=== PATIENT | male | born 1985 | race Hispanic/Latino ===

== ENCOUNTER 2018-01-04 16:04 | Emergency (ER) | payer MEDICAID, SELFPAY, OTHER | END 2018-01-04 17:58 | disposition home or self-care (01) | LOC: M ED 16:04 | DX: S82.831A Other fracture of upper and lower end of right fibula, initial encounter for closed fracture (principal); W19.XXXA Unspecified fall, initial encounter; Y92.410 Unspecified street and highway as the place of occurrence of the external cause; Y93.51 Activity, roller skating (inline) and skateboarding; Y99.9 Unspecified external cause status; Z79.899 Other long term (current) drug therapy | CPT/HCPCS: 73610 ==

== ENCOUNTER → 2022-04-13 | Outpatient (CLI) | payer MEDICAID ==
[~2022-04-13] MED LIST: ADDE10CA3 PO; FLUV150C PO; HYDR-3715 PO; IBUP-1022 PO; WELLTAB40 PO
== END ==
LOC: M SOG 08:23
PROVIDERS: ATTEND Orthopaedic Surgery Hand Surgery
DX: M79.642 Pain in left hand (principal)

== ENCOUNTER 2022-08-21 12:25 | Emergency (ER) | payer MEDICAID, OTHER ==
[~2022-08-21] VITALS: Ht 177.8 cm; Wt 100.7 kg
[2022-08-21] MEDS ORDERED: FOLI1TAB11 (12:33)
[2022-08-21] MEDS ORDERED: ETAN50PE (12:33)
[2022-08-21 17:13] LABS: GC DNA AMPLIFICATION NEGATIVE (NEGATIVE)
[2022-08-21] MEDS ORDERED: NAPR-837 PO (17:15)
[2022-08-21] MEDS ORDERED: LEVO1TAB39 PO (17:18)
[2022-08-21 17:37] VITALS: BP 145/86
== END 2022-08-21 17:44 | disposition home or self-care (01) ==
LOC: M ED 12:25
DX: N45.1 Epididymitis (principal); Z79.899 Other long term (current) drug therapy

== ENCOUNTER → 2022-08-30 | Outpatient (REF) | payer OTHER ==
[~2022-08-30] MED LIST changes: +ETAN50PE; +FOLI1TAB11; +LEVO1TAB39 PO; +NAPR-837 PO
[2022-08-30 14:49] LABS: APPEARANCE, URINE MANUAL CLEAR (CLEAR); COLOR, URINE MANUAL YELLOW (YELLOW)
[2022-08-30 14:50] LABS: PH,URINE MAN 7.5 UNITS (5.0 - 7.0)
[2022-08-30 14:51] LABS: BILIRUBIN, URINE MANUAL NEGATIVE (NEGATIVE); BLOOD URINE MANUAL NEGATIVE (NEGATIVE); GLUCOSE, URINE (UA) MANUAL NEGATIVE (NEGATIVE); KETONE, URINE MANUAL NEGATIVE (NEGATIVE); LEUKOCYTE ESTERASE, URINE MAN NEGATIVE (NEGATIVE); NITRITE, URINE MANUAL NEGATIVE (NEGATIVE); PROTEIN, URINE MANUAL NEGATIVE (NEGATIVE); UROBILINOGEN, URINE MANUAL NORMAL (NORMAL)
== END ==
LOC: M SMT 12:58
PROVIDERS: ATTEND Physician Assistant
DX: N45.1 Epididymitis (principal)

== ENCOUNTER 2023-03-06 14:16 | Emergency (ER) | payer OTHER ==
[~2023-03-06] VITALS: Ht 177.8 cm; Wt 97.6 kg
[2023-03-06] MEDS ORDERED: ATOM40CA9 (14:45)
[2023-03-06] MEDS ORDERED: CLOM75CA3 (14:45)
[2023-03-06] MEDS ORDERED: LAMO200T3 (14:45)
[2023-03-06] MEDS ORDERED: BOOSTRIX VACCINE (TETANUS/DIPHTH/ACEL. PERTUSSIS) 0.5ML SYR IM ONE (15:50)
[2023-03-06] MEDS ORDERED: NEOSPORIN OINT 0.9 GM PKT TOP ONE (15:50)
[2023-03-06 16:06] VITALS: BP 134/90; TEMP 97.2; O2SAT 98
== END 2023-03-06 16:09 | disposition home or self-care (01) ==
LOC: M ED 14:16
DX: S92.355A Nondisplaced fracture of fifth metatarsal bone, left foot, initial encounter for closed fracture (principal); W22.8XXA Striking against or struck by other objects, initial encounter; Y92.89 Other specified places as the place of occurrence of the external cause; Y93.89 Activity, other specified; Y99.8 Other external cause status; L40.52 Psoriatic arthritis mutilans; F32.A Depression, unspecified; Z79.899 Other long term (current) drug therapy

== ENCOUNTER 2023-03-18 07:40 | Day surgery (SDC) | payer OTHER ==
[~2023-03-18] VITALS: Ht 177.8 cm; Wt 97.0 kg
[~2023-03-18 07:40] MED LIST changes: +ATOM40CA9 PO; +CLOM75CA3 PO; +COSE1INJ SC; +LAMO200T3 PO
[2023-03-18] MEDS ORDERED: LR 1,000 ML IV SCH (07:50)
[2023-03-18] MEDS ORDERED: ceFAZolin SOD 2 GM in IV 1 EA IV ONE (09:00)
[2023-03-18] MEDS ORDERED: dexmedeTOMIDine (4MCG/ML)200MCG/50ML BTL (PRECEDEX) As Ordered ONE (09:25)
[2023-03-18] MEDS ORDERED: ONDANSETRON 4MG 2ML VIAL As Ordered ONE (09:25)
[2023-03-18] MEDS ORDERED: propofoL 200 MG/20 ML VIAL As Ordered ONE (09:25)
[2023-03-18] MEDS ORDERED: fentaNYL 100 MCG/2 ML INJECTION As Ordered ONE ×2 (09:27→10:13)
[2023-03-18] MEDS ORDERED: MIDAZOLAM INJ 2MG/2ML VIAL As Ordered ONE (09:27)
[2023-03-18] MEDS ORDERED: LIDOCAINE 2% 100MG/5ML SDV (FOR ANES.) As Ordered ONE (09:27)
[2023-03-18] MEDS ORDERED: BACITRACIN OINTMENT 30GM TUBE As Ordered ONE (10:50)
[2023-03-18] MEDS ORDERED: oxyCODONE 5MG TAB PO PRN (11:00)
[2023-03-18] MEDS ORDERED: ONDANSETRON 4MG 2ML VIAL IV PRN (11:00)
[2023-03-18] MEDS ORDERED: MORPHINE 2 MG/ML 1ML VIAL IV PRN (11:00)
[2023-03-18] MEDS ORDERED: fentaNYL 100 MCG/2 ML INJECTION IV PRN (11:00)
[2023-03-18] MEDS ORDERED: PERC5TAB12 PO (11:09)
[2023-03-18 12:32] VITALS: BP 155/89; TEMP 97.4; O2SAT 98
== END 2023-03-18 12:55 | disposition home or self-care (01) ==
LOC: M SDC 07:40
PROVIDERS: ATTEND Orthopaedic Surgery Hand Surgery
DX: S92.512A Displaced fracture of proximal phalanx of left lesser toe(s), initial encounter for closed fracture (principal); X58.XXXA Exposure to other specified factors, initial encounter; Y92.89 Other specified places as the place of occurrence of the external cause; L40.50 Arthropathic psoriasis, unspecified; F41.9 Anxiety disorder, unspecified; F32.A Depression, unspecified; G47.30 Sleep apnea, unspecified; R06.83 Snoring; Z79.899 Other long term (current) drug therapy
CPT/HCPCS: 28515; 28899; 76000; C1713; J0690; J1100; J2250; J2405; J3010

== ENCOUNTER → 2023-03-28 | Outpatient (CLI) | payer OTHER ==
[~2023-03-28] MED LIST changes: +PERC5TAB12 PO
== END ==
LOC: M SOG 13:14
PROVIDERS: ATTEND Physician Assistant
DX: S92.515A Nondisplaced fracture of proximal phalanx of left lesser toe(s), initial encounter for closed fracture (principal); W18.30XA Fall on same level, unspecified, initial encounter; Y92.009 Unspecified place in unspecified non-institutional (private) residence as the place of occurrence of the external cause

== ENCOUNTER → 2023-04-29 | Outpatient (CLI) | payer OTHER | LOC: M SOG 08:02 | PROVIDERS: ATTEND Physician Assistant | DX: S92.515D Nondisplaced fracture of proximal phalanx of left lesser toe(s), subsequent encounter for fracture with routine healing (principal) ==

== ENCOUNTER 2023-10-08 11:05 | Day surgery (SDC) | payer OTHER ==
[~2023-10-08] VITALS: Ht 177.8 cm; Wt 99.4 kg
[2023-10-08] MEDS: NS 1,000 ML IV ONE (06:00)
[~2023-10-08 11:05] MED LIST changes: +WELLTAB38 PO
[2023-10-08] MEDS ORDERED: propofoL 200 MG/20 ML VIAL As Ordered ONE (12:53)
[2023-10-08] MEDS ORDERED: LIDOCAINE 2% 100MG/5ML SDV (FOR ANES.) As Ordered ONE (12:53)
[2023-10-08 13:32] VITALS: TEMP 97.7
[2023-10-08 13:55] VITALS: BP 129/76; O2SAT 97
== END 2023-10-08 14:06 | disposition home or self-care (01) ==
LOC: M OPP 11:05
PROVIDERS: ATTEND Internal Medicine Gastroenterology
DX: Z12.11 Encounter for screening for malignant neoplasm of colon (principal); Z80.0 Family history of malignant neoplasm of digestive organs; K64.4 Residual hemorrhoidal skin tags; K64.8 Other hemorrhoids; K29.70 Gastritis, unspecified, without bleeding; B96.81 Helicobacter pylori [H. pylori] as the cause of diseases classified elsewhere; R10.13 Epigastric pain; Z87.891 Personal history of nicotine dependence; G47.30 Sleep apnea, unspecified; Z99.89 Dependence on other enabling machines and devices; Z79.620 Long term (current) use of immunosuppressive biologic; Z79.899 Other long term (current) drug therapy

== ENCOUNTER → 2024-06-24 | Outpatient (CLI) | payer OTHER ==
[~2024-06-24] MED LIST changes: -CLOM75CA3 PO; +[UNRECOGNIZED DRUG - CODE] PO
[2024-06-24 10:18] LABS: HEMATOCRIT 43.1 % (42.0-52.0); HEMOGLOBIN 15.3 g/dl (13.5-17.5); MEAN CORPUSCULAR HEMOGLOBIN 29.9 pg (27.0-33.0); MEAN CORPUSCULAR HGB CONC 35.5 g/dl (32.0-36.5); MEAN CORPUSCULAR VOLUME 84.3 fl (80.0-96.0); PLATELET COUNT, AUTOMATED 231 10^3/uL (150-450); RED BLOOD COUNT 5.11 10^6/uL (4.30-6.10); WHITE BLOOD COUNT 6.1 10^3/uL (4.0-10.0)
[2024-06-24 11:00] LABS: ALBUMIN 3.9 G/DL (3.2-5.2); ALKALINE PHOSPHATASE 76 U/L (46-116); ALT/SGPT 117 U/L (7.0-40); AST/SGOT 46 U/L (<34); BILIRUBIN,TOTAL 0.7 MG/DL (0.3-1.2); BLOOD UREA NITROGEN 20 MG/DL (9-23); CALCIUM LEVEL 9.2 MG/DL (8.5-10.1); CARBON DIOXIDE LEVEL 26 MMOL/L (20-31); CHLORIDE LEVEL 108 MMOL/L (98-107); CHOLESTEROL LEVEL 202 MG/DL (<200); CHOLESTEROL RISK RATIO 4.53 (<5); CREATININE FOR GFR 1.05 MG/DL (0.70-1.30); GLOMERULAR FILTRATION RATE > 60.0 (>60); GLUCOSE, FASTING 122 MG/DL (60-100); HDL CHOLESTEROL 44.5 MG/DL (>40); LDL CHOLESTEROL 132.5 MG/DL (<100); NON-HDL-C 157.5 MG/DL; POTASSIUM SERUM 4.3 MMOL/L (3.5-5.1); SODIUM LEVEL 139 MMOL/L (136-145); TOTAL PROTEIN 7.4 G/DL (5.7-8.2); TRIGLYCERIDES LEVEL 125 MG/DL (<150)
[2024-06-24 11:02] LABS: THYROID STIMULATING HORMONE 0.612 uIU/ML (0.55-4.78)
[2024-06-24 11:03] LABS: TESTOSTERONE 248 NG/DL (241-827)
[2024-06-24 11:09] LABS: HEMOGLOBIN A1c 5.4 % (4.0-6.0)
== END ==
LOC: M RAD 09:15
PROVIDERS: ATTEND Family Medicine
DX: I10 Essential (primary) hypertension (principal)